=== PATIENT | female | born 2000 | race American Indian/Alaskan Native ===

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

== ENCOUNTER 2018-07-27 18:11 | Emergency (ER) | payer BC, OTHER | END 2018-07-27 18:49 | disposition left against medical advice (07) | LOC: DL.ED 18:11 | DX: Z53.21 Procedure and treatment not carried out due to patient leaving prior to being seen by health care provider (principal) ==

== ENCOUNTER 2018-08-14 07:39 | Day surgery (SDC) | payer BC, OTHER ==
[~2018-08-14 07:39] MED LIST: Midazolam 1 MG/ML 2 ML SDV ONE; fentaNYL 100 MCG/2 ML SDV ONE
[2018-08-14] MEDS ORDERED: Midazolam 1 MG/ML 2 ML SDV IV ONE ×3 (07:40→08:20)
[2018-08-14] MEDS ORDERED: fentaNYL 100 MCG/2 ML SDV IV ONE ×3 (07:40→08:19)
[2018-08-14] MEDS ORDERED: Dextrose 5%-0.45% NaCl 1,000 ML IV SCH (08:02)
--- NOTE | 2018-08-14 13:10 | OR ---
DATE: 08/14/2018 PROCEDURE: Esophagogastroduodenoscopy and multiple pinch biopsies. INSTRUMENT USED: [id number]-[id number] Olympus video panendoscope. PREMEDICATIONS: No oral or topical anesthesia used. Fentanyl 100 mcg intravenous, Versed 2 mg intravenous. The procedure was done under pulse oximetry, BP recording, and electrical tests supervisor. INDICATION: The patient with persistent upper abdominal pain and diarrhea unexplained and not responsive to medical measures. Esophagogastroduodenoscopy is performed for detection of any active erosive lesions, H. pylori status to be determined, small bowel biopsies to be obtained for celiac disease if indicated, endoscopic hemostasis therapy if needed. PROCEDURE IN DETAIL: The scope was passed with ease. Adequate visualization of the esophagus was made from proximal to distal areas. No upper esophageal lesions identified. No distal esophageal stricture. No uphill or downhill esophageal varices. No Gissel-Turcios tear. No evidence of erosive esophagitis by Clute criteria. No esophageal polyp or tumor mass identified. Z-line was seen at around 40 cm distal to the oral verge, configuration consistent with grade 1 by ZAP classification. No proximal gastric varices noted. Gastric fundus examination by retroflexion showed no polypoid lesions. No gastric ulcer, malignant mass, or vascular ectasia identified. Duodenal bulb showed no ulcer. Visualized second part of the duodenum was unremarkable. Multiple pinch biopsies, 4 in number, were taken from different areas of the second part of the duodenum and tissues were also obtained from the duodenal bulb at 9 and 12 o'clock positions and sent for any histopathologic evidence of celiac disease. Multiple pinch biopsies were also obtained from the gastric antrum and proximal body and sent for PyloriTek test for H. pylori and histopathology. No bleeding was noted from any of the visualized areas at the completion of examination. Photographs were taken of the duodenal bulb, gastric antrum, fundus, and distal esophagus. IMPRESSION: Normal study. The patient tolerated the procedure well. [facility] /[id number]
--- NOTE | 2018-08-14 14:25 | LETTER ---
08/14/2018 Amelie Woodall [facility] [address] [place], [place] [address] RE: ANKITA URSULAREMEDIOS RODAS : 2000 Dear Ms. Woodall: Ms. Ursula Lester had esophagogastroduodenoscopy done this morning and she tolerated the procedure well. I herewith send a copy of the endoscopy note and photographs for your review. Thank you. Sincerely, [facility] /[id number]
== END 2018-08-14 10:25 | disposition home or self-care (01) ==
LOC: DL.ENDO 07:39
PROVIDERS: ATTEND Internal Medicine Gastroenterology
DX: R10.10 Upper abdominal pain, unspecified (principal); R19.7 Diarrhea, unspecified; R10.13 Epigastric pain; R11.0 Nausea; K90.49 Malabsorption due to intolerance, not elsewhere classified; E73.9 Lactose intolerance, unspecified; Z87.440 Personal history of urinary (tract) infections
CPT/HCPCS: 43239; 87077; J2250; J3010; J7042

== ENCOUNTER 2023-04-08 10:35 | Inpatient (IN) | payer BC, OTHER ==
[2023-04-08] MEDS ORDERED: Sodium Chloride 0.9% 10 ML Syringe FLUSH PRN (14:58)
[2023-04-08] MEDS ORDERED: Acetaminophen 325 MG Tab PO PRN (14:58)
[2023-04-08] MEDS ORDERED: fentaNYL 100 MCG/2 ML SDV IVPUSH PRN (14:58)
[2023-04-08] MEDS ORDERED: Tranexamic Acid 1,000 MG in Sodium Chloride 0.9% 100 ML IV PRN (14:58)
[2023-04-08] MEDS ORDERED: Misoprostol 400 MCG (4 X 100 MCG TAB) RECTAL PRN (14:58)
[2023-04-08] MEDS ORDERED: Ondansetron 4 MG/2 ML SDV IVPUSH PRN (14:58)
[2023-04-08] MEDS ORDERED: Carboprost Tromethamine 250 MCG/1 ML Amp IM PRN (14:58)
[2023-04-08] MEDS ORDERED: Methylergonovine 0.2 MG/1 ML Amp IM PRN (14:58)
[2023-04-08 15:21] LABS: HEMATOCRIT 41.4 % (37.0-47.0); MEAN CORPUSCULAR HGB CONC 33.8 g/dL (33.0-35.0); MEAN CORPUSCULAR VOLUME 94.7 fL (80-100); RED BLOOD CELL COUNT 4.37 10^6/uL (4.2-5.4); WHITE BLOOD CELL COUNT,WBC 10.3 10^3/uL (5.0-10.0)
[2023-04-08] MEDS: Lactated Ringers 1,000 ML IV ONE (18:10)
[2023-04-08] MEDS ORDERED: fentaNYL 100 MCG/2 ML SDV ONE (18:52)
[2023-04-08] MEDS: Lactated Ringers 1,000 ML IV SCH (19:06)
[2023-04-08] MEDS ORDERED: Phenylephrine HCl In 0.9% NaCl 1 MG/10 ML Syringe IVPUSH PRN (19:37)
[2023-04-08] MEDS ORDERED: ePHEDrine 50 MG/ML SDV IVPUSH PRN (19:37)
[2023-04-08] MEDS ORDERED: Ropivacaine 200 MG in Premix Bag 1 BAG EPIDUR SCH (19:45)
[2023-04-08] MEDS: Oxytocin/Normal Saline 30 UNIT/500 ML BAG IV SCH (20:49)
[2023-04-09] MEDS ORDERED: Tranexamic Acid 1,000 MG in Sodium Chloride 0.9% 100 ML IV PRN (09:06)
[2023-04-09] MEDS ORDERED: Simethicone 80 MG Tab.Chew PO PRN (09:06)
[2023-04-09] MEDS ORDERED: Acetaminophen 325 MG Tab PO PRN (09:06)
[2023-04-09] MEDS ORDERED: Sodium Chloride 0.9% 10 ML Syringe FLUSH PRN (09:06)
[2023-04-09] MEDS ORDERED: Carboprost Tromethamine 250 MCG/1 ML Amp IM PRN (09:06)
[2023-04-09] MEDS ORDERED: Oxytocin 10 Units/1 ML SDV IM PRN (09:06)
[2023-04-09] MEDS ORDERED: Misoprostol 400 MCG (4 X 100 MCG TAB) RECTAL PRN (09:06)
[2023-04-09] MEDS: Ibuprofen 800 MG Tab PO PRN (11:30)
[2023-04-09] MEDS: Witch Hazel Medicated Pads 100/Jar TOP PRN (13:11)
[2023-04-09] MEDS: Benzocaine/Menthol 20%-0.5% Spray 78 GM Cannister TOP PRN (13:12)
[2023-04-09] MEDS: Lidocaine 1% 30 ML SDV INJECT ONE (13:14)
[2023-04-09] MEDS: Docusate Sodium 100 MG Cap PO PRN (20:13)
[2023-04-10] MEDS: Acetaminophen 325 MG Tab PO PRN (02:29)
[2023-04-10 09:36] LABS: HEMATOCRIT 34.7 % (37.0-47.0); HEMOGLOBIN 11.6 g/dL (12.0-16.0); MEAN CORPUSCULAR HEMOGLOBIN 32.4 pg (27.0-34.0); MEAN CORPUSCULAR HGB CONC 33.4 g/dL (33.0-35.0); MEAN CORPUSCULAR VOLUME 96.9 fL (80-100); RED BLOOD CELL COUNT 3.58 10^6/uL (4.2-5.4); WHITE BLOOD CELL COUNT,WBC 15.4 10^3/uL (5.0-10.0)
[2023-04-10] MEDS: Prenatal Multivitamin with Calcium/Folic Acid/Iron Tab PO SCH (09:46)
[2023-04-10] MEDS: Mineral Oil/Petrolatum/Phenylephrine/Shark Liver Oil Oint 57 GM Tube RECTAL PRN (17:04)
[2023-04-11] MEDS ORDERED: fentaNYL 100 MCG/2 ML SDV IV ONE (16:39)
== END 2023-04-11 16:40 | disposition home or self-care (01) | DRG 542 ==
LOC: DL.OBCHECK 10:35 → DL.OB 14:00 → OBSVTOIN 04-09 09:05
PROVIDERS: ADMIT Family Medicine; ATTEND Family Medicine
PROC: 10D07Z6 Extraction of Products of Conception, Vacuum, Via Natural or Artificial Opening (ICD-10-PCS; principal; 2023-04-09)
PROC: 10907ZC Drainage of Amniotic Fluid, Therapeutic from Products of Conception, Via Natural or Artificial Opening (ICD-10-PCS; 2023-04-09)
PROC: 0DQR0ZZ Repair Anal Sphincter, Open Approach (ICD-10-PCS; 2023-04-09)
PROC: 10H07YZ Insertion of Other Device into Products of Conception, Via Natural or Artificial Opening (ICD-10-PCS; 2023-04-09)
PROC: 3E0R3BZ Introduction of Anesthetic Agent into Spinal Canal, Percutaneous Approach (ICD-10-PCS; 2023-04-09)
PROC: 00HU33Z Insertion of Infusion Device into Spinal Canal, Percutaneous Approach (ICD-10-PCS; 2023-04-09)
DX: O99.02 Anemia complicating childbirth (principal); Z37.0 Single live birth; O70.20 Third degree perineal laceration during delivery, unspecified; O12.14 Gestational proteinuria, complicating childbirth; O69.81X0 Labor and delivery complicated by cord around neck, without compression, not applicable or unspecified; O76 Abnormality in fetal heart rate and rhythm complicating labor and delivery; Z3A.39 39 weeks gestation of pregnancy; Z90.89 Acquired absence of other organs
CPT/HCPCS: 36415; 51701; 51702; 59409; 85027; A9270-GY; C1729; J2590; J3010; J7120